=== PATIENT | female | born 2000 | race African-American/Black ===

== ENCOUNTER 2020-06-15 23:02 | Emergency (ER) | payer SELFPAY ==
--- NOTE | ~2020-06-15 | US_ITS ---
EXAMINATION: US OB <=14 wk fetus w TV DATE: 06/16/2020 00:18 INDICATION: Vaginal bleeding TECHNIQUE: Real-time transabdominal and transvaginal obstetric ultrasound. FINDINGS: No prior studies for comparison. The uterus measures 6.5 x 3.6 x 4.7 cm. There is an intrauterine gestational sac, with pole rosalva ntified. The crown rump length measures 0.24 cm, which correlates with a estimated gestational age o f 5 weeks 5 days. heart tones are identified measuring 109 bpm. There is a 2.7 cm corpus lute al cyst of the left ovary. There is normal Doppler signal in the ovaries. No evidence for subchorioni c hemorrhage. IMPRESSION: 1. SL IUP with an EGA of 5 weeks, 5 days (EDC by current ultrasound of 02/10/2021). 2: Left ovarian corpus luteal cyst measuring 2.7 cm. Reviewed, dictated and finalized at location A. IMPRESSION: 1. SL IUP with an EGA of 5 weeks, 5 days (EDC by current ultrasound of 02/10/19). 2: Left ovarian corpus luteal cyst measuring 2.7 cm.
[2020-06-15 23:29] VITALS: BP 114/63; PULSE 72; RESP 18; TEMP 36.5; O2SAT 100
[2020-06-15 23:48] LABS: Basophils Percent Auto 0.2 % (0.2-1.2); Eosinophils Percent Auto 0.6 % (0-4.4); Hematocrit 39.3 % (37.0-47.0); Hemoglobin 12.6 g/dL (12.0-15.0); Immature Granulocyte Absolute 0.01 K/mm3 (0.00-0.031); Immature Granulocyte Percent A 0.2 % (0-0.5); Lymphocytes Absolute Auto 2.48 K/mm3 (0.9-3.2); Lymphocytes Percent Auto 38.2 % (18.3-44.2); Mean Corpuscular HGB Conc 32.1 g/dl (32-36); Mean Corpuscular Hemoglobin 29.9 pg (26-34); Mean Corpuscular Volume 93.3 fl (80-100); Mean Platelet Volume 10.5 fl (7.4-10.4); Monocytes Absolute Auto 0.5 K/mm3 (0.1-0.6); Monocytes Percent Auto 7.7 % (2.6-8.5); Neutrophils Absolute Auto 3.5 K/mm3 (1.3-6.7); Neutrophils Percent Auto 53.1 % (45.5-73.1); Platelet Count Result 223 k/mm3 (150-375); Red Blood Count 4.21 M/mm3 (4.2-5.4); White Blood Count 6.5 K/mm3 (4.5-10.0)
[2020-06-16 01:43] VITALS: BP 122/64; PULSE 69
[2020-06-16 01:44] VITALS: BP 113/62; PULSE 84
[2020-06-16 01:46] VITALS: BP 119/55; PULSE 97
--- NOTE | 2020-06-16 02:42 | ED.FEMALEGU ---
HPI - Female Genitourinary General Chief complaint: Vaginal Bleeding Stated complaint: vaginal bleed and Time Seen by Provider: 06/16/20 02:17 Source: patient Mode of arrival: ambulatory Limitations: no limitations History of Present Illness HPI Narrative: This is a 19 year old female who presents for evaluation of positive test and vaginal spotting. She just found out she was and she developed vaginal spotting yesterday. She reports intermittent lower abdominal cramping. She denies fever, nausea, vomiting or abnormal vaginal discharge. This would be her first . LMP 05/03/20 Related Data Home Medications Medication Instructions Recorded Confirmed No Home Medications 06/16/20 06/16/20 Allergies Allergy/AdvReac Type Severity Reaction Status Date / Time No Known Allergies Allergy Verified 06/16/20 01:41 Review of Systems Review of Systems: All systems reviewed & are unremarkable except as noted in HPI and below PMFSH Past Medical History Medical History (Updated 06/16/20 @ 02:50 by Amina Osullivan MD) Patient denies medical problems Surgical History Surgical History (Updated 06/16/20 @ 02:44 by Amina Osullivan MD) No pertinent past surgical history Social History Social History (Updated 06/16/20 @ 02:44 by Amina Osullivan MD) Smoking status: Never smoker Gender identity (if verbalized by the patient): Female Exam Const: General: no acute distress and alert Orientation/consciousness: patient oriented x3 Eyes: EOM: EOMs intact bilaterally Resp: Effort & Inspection: normal respiratory effort and no retractions Auscultation: clear to auscultation bilaterally Cardio: Rate: regular rate Rhythm: regular rhythm Heart sounds: no murmurs GI: GI Palp: Yes Soft to palpation, No Tenderness to palpation present (GI) and No Guarding due to palpation present (GI) Auscultation: normal bowel sounds : Speculum Exam - Cervix: normal appearance of the cervix and Cervical os closed Other: no vaginal discharge Skin: General skin exam: normal color Rashes: no rashes Neuro: General: patient oriented x3, moves all extremities and CN's II-XI intact bilaterally Psych: Mental Status: mental status grossly normal Affect: normal affect Course Reevaluation(s) Reevaluation #1: I have discussed with patient US shows IUP. She will have to follow up with Dr. Beaulieu who OBGYN Date: 06/16/20 Time: 02:46 Vital Signs Vital signs: Vital Signs Temperature 97.7 F 06/15/20 23:29 Pulse Rate 72 06/15/20 23:29 Respiratory Rate 18 06/15/20 23:29 Blood Pressure 114/63 06/15/20 23:29 Pulse Oximetry 100 06/15/20 23:29 Temperature 97.7 F 06/15/20 23:29 Pulse Rate 79 06/16/20 03:43 Respiratory Rate 18 06/16/20 03:43 Blood Pressure 116/53 L 06/16/20 03:43 Pulse Oximetry 98 06/16/20 03:43 MDM - Female Genitourinary Lab Data Attestation: I reviewed the patient's lab results. Result diagrams: 06/15/20 23:42 Labs: Lab Results 06/15/20 06/15/20 06/15/20 Range/Units 23:42 23:42 23:42 WBC 6.5 (4.5-10.0) K/mm3 RBC 4.21 (4.2-5.4) M/mm3 Hgb 12.6 (12.0-15.0) g/dL Hct 39.3 (37.0-47.0) % MCV 93.3 (80-100) fl MCH 29.9 (26-34) pg MCHC 32.1 (32-36) g/dl RDW 13.0 (11.5-14.5) % Plt Count 223 (150-375) k/mm3 MPV 10.5 H (7.4-10.4) fl Immature Gran % (Auto) 0.2 (0-0.5) % Neut % (Auto) 53.1 (45.5-73.1) % Lymph % (Auto) 38.2 (18.3-44.2) % Greenlee % (Auto) 7.7 (2.6-8.5) % Eos % (Auto) 0.6 (0-4.4) % Baso % (Auto) 0.2 (0.2-1.2) % Lymph # (Auto) 2.48 (0.9-3.2) K/mm3 Greenlee # (Auto) 0.5 (0.1-0.6) K/mm3 Eos # (Auto) 0.0 (0-0.3) K/mm3 Baso # (Auto) 0.0 (0.0-0.1) K/mm3 Abs Immat Gran (auto) 0.01 (0.00-0.031) K/mm3 Absolute Neuts (auto) 3.5 (1.3-6.7) K/mm3 Absolute Nucleated RBC 0.0 (0.0-0.012) K/mm3 Nuc
[2020-06-16 03:43] VITALS: BP 116/53; PULSE 79; RESP 18; O2SAT 98
== END 2020-06-16 03:46 | disposition home or self-care (01) ==
PROVIDERS: Emergency Medicine; Emergency Provider General Practice; PCP Obstetrics & Gynecology
DX: O20.0 Threatened abortion (principal); Z3A.01 Less than 8 weeks gestation of pregnancy
CPT/HCPCS: 36415; 76801; 76817; 84702; 85025; 85461; 99284

== ENCOUNTER 2020-11-05 17:18 | Emergency (ER) | payer OTHER, SELFPAY ==
[2020-11-05 17:33] VITALS: BP 134/75; PULSE 105; RESP 19; TEMP 36.7; O2SAT 98
--- NOTE | 2020-11-05 18:16 | ED.SKABFB ---
HPI - Skin/Abscess/Foreign Bdy General Chief complaint: Skin/Abscess/Foreign Body Stated complaint: Cyst inner Labia Time Seen by Provider: 11/05/20 18:05 Source: patient Mode of arrival: ambulatory Limitations: no limitations History of Present Illness HPI narrative: This is a 20 year old female that presents to the ER for labial swelling. Reports she noted this yesterday. Reports the area is painful. She is currently 26 weeks . Her OB is Dr. Madyson Oviedo. She has been receiving regular pre- care. Is feeling baby move. Denies any pelvic cramping or vaginal bleeding. Denies fever or dysuria. Related Data Allergies Allergy/AdvReac Type Severity Reaction Status Date / Time No Known Allergies Allergy Verified 11/05/20 17:36 Review of Systems Review of Systems: CONSTITUTIONAL: Denies fever GASTROINTESTINAL: Denies abdominal pain, nausea, vomiting GENITOURINARY: Denies dysuria All systems reviewed & are unremarkable except as noted in HPI and below PMFSH Past Medical History Medical History (Updated 11/05/20 @ 21:04 by Oly Mcdowell PA-C) Patient denies medical problems Surgical History Surgical History (Updated 06/16/20 @ 02:44 by Amina Osullivan MD) No pertinent past surgical history Social History Social History (Updated 06/16/20 @ 02:44 by Amina Osullivan MD) Smoking status: Never smoker Gender identity (if verbalized by the patient): Female Exam Narrative: GENERAL: Well-appearing, well-nourished, and in no acute distress. HEAD: Normocephalic, atraumatic. EYES: EOMI. CHEST: Clear to auscultation. No respiratory distress. No wheezes rales or rhonchi HEART: Regular rate and rhythm. No murmur heard. Normal peripheral pulses. ABDOMEN: Gravid EXTREMITIES: Normal range of motion. No edema. SKIN: Warm, dry, no rash. NEURO: No focal deficits. Alert and oriented x3. PSYCH: Normal mood and affect FEMALE GENITAL: Right labia majora with large area of erythema and edema with central fluctuance, tender to palpation Course Vital Signs Vital signs: Vital Signs Temperature 98.0 F 11/05/20 17:33 Pulse Rate 105 H 11/05/20 17:33 Respiratory Rate 19 11/05/20 17:33 Blood Pressure 134/75 09/27/21 17:33 Pulse Oximetry 98 11/05/20 17:33 Temperature 98.0 F 11/05/20 17:33 Pulse Rate 105 H 11/05/20 17:33 Respiratory Rate 19 11/05/20 17:33 Blood Pressure 134/75 11/05/20 17:33 Pulse Oximetry 98 11/05/20 17:33 MDM - Skin/Abscess/Foreign Bdy MDM Narrative Medical decision making narrative: Patient presents the emergency department for large labial abscess. 26 weeks . Has been getting regular care. Is feeling baby move. Baby has normal heart tones. No pelvic cramping or vaginal bleeding. Patient has had history of multiple abscesses in the past. Likely has hidradenitis suppurativa. Although has never seen a eap counselor. Patient is afebrile and nontoxic-appearing. CBC with mild leukocytosis. Inflammatory markers are also mildly elevated. Spoke with Dr. Servin about patient and work-up who came to the ED and drained the abscess. Would like patient started on Keflex. She is to follow-up with her OB in the next couple of days. Patient is stable and felt appropriate for further outpatient evaluation. She was given warnings to return to the ER Lab Data Attestation: I reviewed the patient's lab results. Result diagrams: 11/05/20 18:44 11/05/20 18:44 Labs: Lab Results 11/05/20 11/05/20 11/05/20 Range/Units 18:44 18:44 19:07 WBC 11.5 H (4.5-10.0) K/mm3 RBC 3.35 L (4.2-5.4) M/mm3 Hgb 10.2 L (12.0-15.0) g/dL Hct 31.2 L (37.0-47.0) % MCV 93.1 (80-100) fl MCH 30.4 (26-34) pg MCHC 32.7 (32-36) g/dl RDW 13.6 (11.5-14.5) % Plt Count 186 (150-375) k/mm3 MPV 11.1 H (7.4-10.4) fl Immature Gran % (Auto) 0.4 (0-0.5) % Neut % (Auto) 82.5 H (45.5-73.1) % Lymph
[2020-11-05 18:52] LABS: Basophils Percent Auto 0.3 % (0.2-1.2); Eosinophils Percent Auto 0.3 % (0-4.4); Hematocrit 31.2 % (37.0-47.0); Hemoglobin 10.2 g/dL (12.0-15.0); Immature Granulocyte Absolute 0.05 K/mm3 (0.00-0.031); Immature Granulocyte Percent A 0.4 % (0-0.5); Lymphocytes Absolute Auto 1.22 K/mm3 (0.9-3.2); Lymphocytes Percent Auto 10.7 % (18.3-44.2); Mean Corpuscular HGB Conc 32.7 g/dl (32-36); Mean Corpuscular Hemoglobin 30.4 pg (26-34); Mean Corpuscular Volume 93.1 fl (80-100); Mean Platelet Volume 11.1 fl (7.4-10.4); Monocytes Absolute Auto 0.7 K/mm3 (0.1-0.6); Monocytes Percent Auto 5.8 % (2.6-8.5); Neutrophils Absolute Auto 9.5 K/mm3 (1.3-6.7); Neutrophils Percent Auto 82.5 % (45.5-73.1); Platelet Count Result 186 k/mm3 (150-375); Red Blood Count 3.35 M/mm3 (4.2-5.4); Red Cell Distribution Width 13.6 % (11.5-14.5); White Blood Count 11.5 K/mm3 (4.5-10.0)
[2020-11-05 19:11] LABS: Anion Gap 7 mmol/L (8-16); Blood Urea Nitrogen 5 mg/dL (7-17); CRP 2.9 mg/dL (<1.0); Calcium 13.6 mg/dL (8.4-10.2); Carbon Dioxide 21 mmol/L (22-30); Chloride 108 mmol/L (98-107); Estimated CRCL calculation 128 ml/min; Estimated Glomerular Filt Rate > 60; Glucose 91 mg/dL (65-110); Potassium 4.4 mmol/L (3.4-5.0); Sodium 136 mmol/L (137-145)
[2020-11-05 19:19] LABS: Add Urine Microscopic? YES; Appearance Urine Cloudy (Clear); Bacteria Urine Trace /hpf; Bilirubin Urine Negative (Negative); Blood Urine Negative (Negative); Color Urine Yellow (Yellow); Glucose Urine UA Negative (Negative); Ketones Urine Negative (Negative); Leukocyte Esterase Ur Trace LEU/UL (Negative); Mucus Urine Rare /lpf; Nitrate Urine Negative (Negative); Protein Urine Negative (Negative); Specific Grav Ur 1.015 (1.001-1.035); Squamous Epithelial Cell Urine Moderate /hpf (Few)
[2020-11-05 19:43] LABS: Erythrocyte Sedimentation Rate 25 mm/hr (0-20)
--- NOTE | 2020-11-05 21:31 | WPDCN ---
Assessment and Plan Assessment and plan (1) Labial abscess: Code(s): N76.4 - Abscess of vulva Status: Acute Assessment and Plan: patient with multiple labial and buttocks abscesses I&D performed on largest abscess, right labia majora anaerobic/aerobic culture sent patient with suspected hidradenitis suppurativa (based on history and physical exam) Rx for Keflex sent to pharmacy as well as for Lidocaine ointment by ED provider advised to perform sitz baths with epsom salt 2-3x daily may also use Hibiclens 2x/week advised to keep area clean and dry may take Tylenol PRN recommend evaluation by dermatology for further management advised to contact primary OB office and schedule f/u appt within 1 week Patient's cell number: [phone] [facility] Data of Consult Date/Time: 11/05/20 21:31 Primary Care Provider: PHYSICIAN NOT ON STAFF Consult Narrative Narrative: Alla Sewell is a 20 year old female currently 26w5d with RUFINA 02/06/21 who presented to ED with complaints of labial abscess and vulvar as well as buttock pain. Patient reports prior history of multiple vulvar abscesses. Also reports similar abscesses occasionally in axillary area. Reports development of right labial abscess approx. 2 months ago s/p I&D. Reports recurrence of abscess in same area yesterday that significantly enlarged this morning and throughout the day. Reports exquisite tenderness to the touch and states it is difficult to walk. She also reports a similar, smaller abscesses within right buttock and left labia majora, and although also painful, not as painful as right labial abscess. Denies any fever, chills, nausea, vomiting, urinary symptoms, or vaginal discharge. Patient denies any OB complaints. Denies any unusual vaginal bleeding, leakage of fluid, or contractions. Reports good movement. Patient receives care with Dr. Madyson Palmer in [place], [place] and reports an uncomplicated thus far. Review of Systems Constitutional: Constitutional: Reports as per HPI, Reports no additional constitutional complaints, Denies chills and Denies fever(s) Gastrointestinal: Gastrointestinal: Reports as per HPI, Reports no additional gastrointestinal complaints, Denies nausea and Denies vomiting Genitourinary: Genitourinary: Reports no additional female genitourinary complaints, Reports as per HPI, Reports genital lesions and Denies vaginal discharge PMFSH Past Medical History Medical History Patient denies medical problems Surgical History Surgical History No pertinent past surgical history Social History Social History Smoking status: Never smoker Gender identity (if verbalized by the patient): Female Meds Home Medications and Allergies Home Medications Medication Instructions Recorded Confirmed Type PNV,calcium 40-gxpx-euvoe acid tablet 11/05/20 History [WesTab Plus] cephalexin 500 mg PO Q6H 10 Days #40 cap 11/05/20 Rx lidocaine 1 applic TOPICAL QID PRN #30 g 11/05/20 Rx Allergies Allergy/AdvReac Type Severity Reaction Status Date / Time No Known Allergies Allergy Verified 11/05/20 17:36 Vital Signs Vital Signs - 24 hr 11/05/20 17:33 Temperature 36.7 C Pulse Rate 105 H Respiratory Rate 19 Blood Pressure 134/75 Pulse Oximetry 98 Exam Const: General: cooperative, healthy appearing and no acute distress GI: GI Palp: Yes Soft to palpation and No Tenderness to palpation present (GI) Other: gravid FHR 155 bpm on doppler : Other: significantly enlarged right labia majora with approx. 6-7cm x 3-4cm firm, indurated area palpated, area of fluctuance noted, mild erythema noted, exquisitely tender to palpation, left labia with two smaller abscesses approx. 2-3cm each, both firm and indurated, one with area of fluctuance pa
== END 2020-11-05 21:54 | disposition home or self-care (01) ==
PROVIDERS: Physician Assistant; Emergency Provider Emergency Medicine
DX: O23.592 Infection of other part of genital tract in pregnancy, second trimester (principal); Z3A.26 26 weeks gestation of pregnancy
CPT/HCPCS: 36415; 56405; 80048; 81001; 85025; 85652; 86140; 87070; 87205; 99283

== ENCOUNTER 2022-06-03 17:05 | Emergency (ER) | payer OTHER, SELFPAY ==
--- NOTE | ~2022-06-03 | CT_ITS ---
EXAMINATION: CT abdomen pelvis wo con DATE: 06/03/2022 18:27 INDICATION: R flank pain X 3d TECHNIQUE: Computed tomography (CT) of the abdomen and pelvis was performed without intravenous contr ast. Automated exposure control and iterative reconstruction technique were employed. The dose-length product was 206.45 mGy-cm. COMPARISON: None. FINDINGS: Lower thorax: Unremarkable Liver: Granulomas calcifications. Biliary/Gallbladder: Gallbladder is normal. No bile duct dilation. Pancreas: No mass or duct dilation. Spleen: Granulomatous calcifications. Adrenals:No mass. Kidneys: No mass, stone, or hydronephrosis. GI tract: No small or large bowel dilation. Normal appendix. Mesentery/Peritoneum: No ascites, mass, or free air. Retroperitoneum: No mass. Pelvis: Distal ureters are difficult to visualize given the paucity of abdominal fat however there ar e no calcifications along the expected pathway of the ureters. Pelvic organs are within normal limits . Soft Tissues: Soft tissues and body wall unremarkable. Bones: No acute osseous finding. IMPRESSION: No acute abdominopelvic process detected Reviewed, dictated and finalized at location K.
[2022-06-03 17:10] VITALS: BP 155/93; PULSE 84; RESP 18; TEMP 36.7; O2SAT 100
[2022-06-03 17:26] LABS: Basophils Percent Auto 0.4 % (0.2-1.2); Eosinophils Percent Auto 0.5 % (0-4.4); Hematocrit 39.2 % (37.0-47.0); Hemoglobin 12.6 g/dL (12.0-15.0); Immature Granulocyte Absolute 0.02 K/mm3 (0.00-0.031); Immature Granulocyte Percent A 0.3 % (0-0.5); Lymphocytes Absolute Auto 2.34 K/mm3 (0.9-3.2); Lymphocytes Percent Auto 31.7 % (18.3-44.2); Mean Corpuscular HGB Conc 32.1 g/dl (32-36); Mean Corpuscular Hemoglobin 30.4 pg (26-34); Mean Corpuscular Volume 94.7 fl (80-100); Mean Platelet Volume 10.5 fl (7.4-10.4); Monocytes Absolute Auto 0.4 K/mm3 (0.1-0.6); Monocytes Percent Auto 4.9 % (2.6-8.5); Neutrophils Absolute Auto 4.6 K/mm3 (1.3-6.7); Neutrophils Percent Auto 62.2 % (45.5-73.1); Platelet Count Result 257 k/mm3 (150-375); Red Blood Count 4.14 M/mm3 (4.2-5.4); Red Cell Distribution Width 13.7 % (11.5-14.5); White Blood Count 7.4 K/mm3 (4.5-10.0)
[2022-06-03 17:36] LABS: Appearance Urine Clear (Clear); Bilirubin Urine Negative (Negative); Blood Urine Negative (Negative); Color Urine Yellow (Yellow); Glucose Urine UA Negative (Negative); Ketones Urine Negative (Negative); Leukocyte Esterase Ur Negative LEU/UL (Negative); Nitrate Urine Negative (Negative); Protein Urine Negative (Negative); Specific Grav Ur 1.028 (1.001-1.035)
[2022-06-03 17:37] LABS: Alanine Aminotransferase 35 U/L (6-35); Albumin Level 4.5 g/dL (3.5-5.1); Alkaline Phosphatase 93 U/L (38-126); Anion Gap 10 mmol/L (8-16); Aspartate Amino Transferase 39 U/L (14-36); Bilirubin,Total 0.6 mg/dL (0.2-1.3); Blood Urea Nitrogen 10 mg/dL (7-17); Calcium 12.6 mg/dL (8.4-10.2); Carbon Dioxide 20 mmol/L (22-30); Chloride 107 mmol/L (98-107); Estimated CRCL calculation 106 ml/min; Estimated Glomerular Filt Rate > 60; Glucose 137 mg/dL (65-110); Potassium 3.5 mmol/L (3.4-5.0); Sodium 137 mmol/L (137-145)
[2022-06-03 17:38] LABS: Add Urine Microscopic? NO
--- NOTE | 2022-06-03 18:12 | ED.GENADULT ---
HPI - General Adult General Chief complaint: Unspecified <PENNIE Brooks Last Filed: 06/04/22 02:18> Stated complaint: Right side/back pain <PENNIE Brooks Last Filed: 06/04/22 02:18> Time Seen by Provider: 06/03/22 17:46 <PENNIE Brooks Last Filed: 06/04/22 02:18> Source: patient <PENNIE Brooks Last Filed: 06/04/22 02:18> Mode of arrival: ambulatory <PENNIE Brooks Last Filed: 06/04/22 02:18> Limitations: no limitations <PENNIE Brooks Last Filed: 06/04/22 02:18> History of Present Illness HPI narrative: Patient is a 21-year-old female who presents the ED with report of right low back/flank pain. Patient reports having pain for the last 3 days. Pain worse with movement and bending over forward. She was seen at a local urgent care and provided with muscle relaxers but denies significant improvement with this. She has also been taking Tylenol occasionally. Denies any radiation of pain to abdomen or down the legs. Denies nausea, vomiting, diarrhea, fevers, urinary symptoms, incontinence, numbness, history of kidney stones, pleuritic pain, chest pain, difficulty breathing. Patient has not taken anything for pain today. <PENNIE Brooks Last Filed: 06/04/22 02:18> Related Data Home medications: Home Medications Medication Instructions Recorded Confirmed vitamin with calcium tablet 11/05/20 no.72-iron 27 mg-folic acid 1 mg tablet (WesTab Plus) <PENNIE Brooks Last Filed: 06/04/22 02:18> Allergies/adverse reactions: Allergies Allergy/AdvReac Type Severity Reaction Status Date / Time No Known Allergies Allergy Verified 06/03/22 17:49 <PENNIE Brooks Last Filed: 06/04/22 02:18> Review of Systems Review of Systems: CONSTITUTIONAL: Denies fever, chills, or sweats. CARDIOVASCULAR: Denies chest pain. RESPIRATORY: Denies dyspnea. GASTROINTESTINAL: Denies abdominal pain, nausea, vomiting, or diarrhea. GENITOURINARY: Denies incontinence, dysuria or hematuria. MUSCULOSKELETAL: See HPI. NEUROLOGIC: Denies headache, numbness, or weakness. <Ro Hewitt PA-C - Last Filed: 06/04/22 02:18> All systems reviewed & are unremarkable except as noted in HPI and below <Ro Hewitt PA-C - Last Filed: 06/04/22 02:18> [facility] Past Medical History Medical History: Medical History Patient denies medical problems <Ro Hewitt PA-C - Last Filed: 06/04/22 02:18> Surgical History Surgical History: Surgical History No pertinent past surgical history <Ro Hewitt PA-C - Last Filed: 06/04/22 02:18> Social History Social History: Social History Smoking status: Never smoker Gender identity (if verbalized by the patient): Female <Ro Hewitt PA-C - Last Filed: 06/04/22 02:18> Exam Narrative: GENERAL: Well appearing, thin, non-toxic, in no acute distress. HEAD: Normocephalic, atraumatic. NECK: Supple. No adenopathy, no masses. RESPIRATORY: Airway patent, respirations nonlabored. Clear to auscultation bilaterally, no rales, rhonchi, wheezing. CARDIOVASCULAR: Regular rate and rhythm without murmurs, rubs, or gallops. Radial pulses 2+ and equal bilaterally. ABDOMINAL: Soft, no tenderness throughout abdomen, nondistended, no hepatosplenomegaly. Normoactive BS. MUSCULOSKELETAL: Moves all extremities. Strength/ROM intact without gross deformities. Point tenderness to palpation in right lower lateral lumbosacral region. No midline lumbar or thoracic spinal tenderness. SKIN: Warm, dry, normal color. No rashes. NEURO: A&O X3. Speech clear. Cranial nerves II-XII grossly intact. Steady gait. No ataxic movem
[2022-06-03] MEDS: KETOROLAC (*BKC) 60 MG/2 ML VIAL IM (18:57)
[2022-06-03 19:49] VITALS: BP 118/75; PULSE 65; O2SAT 99
== END 2022-06-03 20:04 | disposition home or self-care (01) ==
PROVIDERS: Emergency Medicine; Emergency Provider Physician Assistant
DX: M54.50 Low back pain, unspecified (principal)
CPT/HCPCS: 36415; 74176; 80053; 81003; 81025; 85025; 96372; 99284; J1885